=== PATIENT | male | born 1975 | race Caucasian/White ===

== ENCOUNTER 2020-10-19 13:49 | Emergency (ER) | payer OTHER ==
[~2020-10-19] VITALS: Ht 182.9 cm; Wt 79.4 kg
[2020-10-19] MEDS ORDERED: HYDROCODON-ACE1 EA10 PO (15:21)
[2020-10-19] MEDS ORDERED: FLOMAX0.4 MG PO (15:21)
[2020-10-19] MEDS ORDERED: ONDANSETRON ODT4 MG PO (15:21)
== END 2020-10-19 15:59 | disposition home or self-care (01) ==
LOC: ED 13:49
DX: N20.2 Calculus of kidney with calculus of ureter (principal)
CPT/HCPCS: 74176; 81001; 96372; 99284-25; J1885

== ENCOUNTER 2023-10-16 22:14 | Inpatient (IN) | payer OTHER ==
[~2023-10-16] VITALS: Ht 182.9 cm; Wt 76.7 kg
--- NOTE | ~2023-10-16 | DS ---
[facility] [address], [place] [address] Draft ADMISSION DATE: 10/16/2023 DISCHARGE DATE: 10/18/2023 REASON FOR ADMISSION: This 48-year-old white man presented to the alcohol detox unit within the past 24 hours preceding admission and developed significant abdominal pain, nausea and vomiting. He was taken to the emergency room where he was thoroughly evaluated by Dr. Alvarado, emergency room physician. The patient was at the detox center on the basis of alcohol use disorder, though later admitted to have methamphetamine use including quite recently prior to his presentation at the detox center. His evaluation in the emergency room showed him to have significant abdominal pain and tenderness and a CT scan was showing a massively dilated stomach as well as dilated small bowel loops highly suggestive of small bowel obstruction. Notably, a tox screen was obtained showing him positive for amphetamines including MDMA. Blood alcohol level was negative. He is admitted for further evaluation and care regarding small-bowel obstruction. PAST MEDICAL HISTORY: Quite notable for no evidence of abdominal surgery in the past. He has no associated hernia either. PERTINENT PHYSICAL EXAMINATION: GENERAL: Showed an alert and well-developed, white man with extensively tattooed, who appeared nontoxic without sign of substance withdrawal. VITAL SIGNS: Temperature is , pulse 71, blood pressure 133/73, O2 saturation 98% on room air. NECK: Trachea is midline. CHEST: Clear. HEART: Regular without murmur. ABDOMEN: Nondistended and flat. No focal tenderness. EXTREMITIES: Show no clubbing, cyanosis, or edema. Nasogastric tube showed thickened nasogastric enteric fluid in copious amounts. HOSPITAL COURSE: He was given intravenous fluids and nasogastric tube decompression. Some clear liquids were later allowed to not only clear the tube but also to provide comfort. A followup KUB was performed the 1st day, which showed marked distention of small bowel loops and good position of the nasogastric tube. PATIENT NAME: YVONNE HOWELL DISCHARGE SUMMARY DATE OF : 75 REPORT #: [id number] PHYSICIAN: LIZ GRIFFITH MD PCP: NO PRIMARY CARE PHYSICIAN REPORT IS CONFIDENTIAL AND NOT TO BE RELEASED WITHOUT AUTHORIZATION [facility] [address], [place] [address] Draft He had progressive improvement the following day, was noted on abdominal x-ray to have apparent clearance of the bowel obstruction. On that basis, a small-bowel follow-through was performed which confirmed no evidence of lesion of the small bowel to account for obstruction and passage of contrast into the colon. His nasogastric tube was removed and he was begun on regular diet which he has tolerated well. He did have bowel movement including liquid stool thereafter. He is free to eat that which he desires. He will return to his usual medications of Zofran 4 mg as needed for nausea and tamsulosin and Flomax 0.4 mg daily. He was on hydrocodone and Tylenol for history of kidney stones, which is no longer needed. DISCHARGE DIAGNOSES: 1. Acute small bowel obstruction with marked distention of stomach and small bowel loops. 2. Negative history for abdominal operation or hernia. 3. Substance abuse disorder including methamphetamine and alcohol. 4. History of nephrolithiasis. DISCHARGE MEDICATIONS: Will include nicotine patch 24 mg per day on a daily basis, dispense #30, refill x3. MD ALPESH Yates/ELEONORAL /[id number] cc: Dr. Alvarado Copies: ~ PATIENT NAME: YVONNE HOWELL DISCHARGE SUMMARY DATE OF : 75 REPORT #: [id number] PHYSICIAN: LIZ GRIFFITH MD PCP: NO PRIMARY CARE PHYSICIAN REPORT IS CONFIDENTIAL AND NOT TO BE RELEASED WITHOUT AUTHORIZATION
[~2023-10-16 22:14] MED LIST: FLOMAX0.4 MG PO; HYDROCODON-ACE1 EA10 PO; ONDANSETRON ODT4 MG PO
[2023-10-16] MEDS ORDERED: MULTIVITAMINS 10 ML,FOLIC ACID 1 MG,THIAMINE HCL 100 MG in SODIUM CHLORIDE 0.9% 1,000 ML IV ONE (22:30)
[2023-10-16] MEDS ORDERED: FAMOTIDINE 20 MG/ 2 ML VIAL IV ONE (22:30)
[2023-10-16] MEDS ORDERED: ondansetron HCL 4 MG/2 ML VIAL IV ONE (22:30)
[2023-10-16] MEDS ORDERED: FOLIC ACID 1 MG/0.2 ML ML ONE (22:31)
[2023-10-16 23:33] LABS: BASOPHILS 0.4 % (0-2); EOSINOPHILS 2.7 % (0-6); LYMPHOCYTES 13.2 % (24-44); MCH 29.8 (27-36); MCHC 33.3 g/dl (30-36); MCV 89.3 fl (81-99); MONOCYTES 6.2 % (0-12); NEUTROPHILS 77.5 % (39-80); PLATELET COUNT 435 K/uL (140-440); RBC 4.71 M/ul (4.3-5.7); RDW 14.6 (10.5-15.0)
[2023-10-16 23:49] LABS: ALBUMIN 4.2 g/dL (3.4-5.0); ALBUMIN/GLOBULIN RATIO 1.27 (1.1-2.4); ANION GAP 12.8 (7-21); BILIRUBIN, TOTAL 0.4 ng/dL (0.2-1.0); BUN/CREATININE RATIO 15.25 (6.0-28.6); CALCIUM 9.9 mg/dL (8.5-10.1); CREATININE, SERUM 1.18 mg/dL (0.70-1.30); POTASSIUM 3.8 mmol/L (3.5-5.1); PROTEIN, TOTAL 7.5 g/dL (6.4-8.2)
[2023-10-17] VITALS (9 sets, daily range): BP systolic 121–143; BP diastolic 69–85
[2023-10-17 00:06] LABS: BILIRUBIN, URINE NEGATIVE (negative); BLOOD/HGB, URINE NEGATIVE (Negative); KETONE, URINE NEGATIVE (Negative); LEUK ESTERASE, URINE NEGATIVE (negative); NITRITE, URINE NEGATIVE (negative); PH, URINE 6.5 (5-7)
[2023-10-17 00:20] LABS: AMPHETAMINES, URINE POSITIVE (NEGATIVE); BARBITURATES, URINE NEGATIVE (NEGATIVE); BENZODIAZEPINE, URINE NEGATIVE (NEGATIVE); BUPRENORPHINE, URINE NEGATIVE (NEGATIVE); CANNABINOID, URINE POSITIVE (NEGATIVE); COCAINE, URINE NEGATIVE (NEGATIVE); ECSTASY, URINE POSITIVE (NEGATIVE); FENTANYL, URINE NEGATIVE (NEGATIVE); METHADONE, URINE NEGATIVE (NEGATIVE); OPIATES, URINE NEGATIVE (NEGATIVE); OXYCODONE, URINE NEGATIVE (NEGATIVE); PHENCYCLIDINE, URINE NEGATIVE (NEGATIVE)
[2023-10-17] MEDS ORDERED: ondansetron HCL 4 MG/2 ML VIAL IV PRN ×2 (00:30→09:45)
[2023-10-17] MEDS ORDERED: LORazepam 2 MG/ML VIAL IV/IM PRN (00:30)
[2023-10-17] MEDS ORDERED: LACTATED RINGER'S 1,000 ML IV SCH ×2 (00:30→09:45)
--- NOTE | 2023-10-17 02:21 | NUR ---
PATIENT ARRIVED TO THE UNIT VIA STRETCHER. MOVED OVER TO BED INDEPENDENTLY. NG TUBE IN PLACE. CONNECTED TO LIWS ON ARRIVAL. CENTRAL LINE IN PLACE; DRESSING INTACT. BANANA BAG INFUSING PER ORDER. PATIENT VS STABLE. PATIENT AAOX4. CIWA <8. LUNGS SOUNDS CLEAR; TOLERATING ROOM AIR. ABD IS TENDER, SOFT. BOWEL SOUNDS HYPOACTIVE. PATIENT IS COVERED IN MANY TATTOOS. SKIN OVERALL INTACT. POST IV SITES AND IV ATTEMPTS NOTED ON CHA ARMS. WARM BLANKET PROVIDED. PATIENT REQUEST NICOTINE PATCH WHICH WAS PROVIDED PER NIO.
[2023-10-17] MEDS ORDERED: NICOTINE 21 MG/24 HR 1 EA TDSY TD SCH ×2 (02:45→09:00)
--- NOTE | 2023-10-17 03:07 | NUR ---
nicotine patch placed on left shoulder. iv fluids started. good blood return and flushed well in proximal central line. ng tube on lis. pt states no other needs at this time. call light in reach.
--- NOTE | 2023-10-17 05:40 | NUR ---
steph rn from detox is here to speak with pt. pt agrees to speak with him. steph tells staff that by the the time the pt leaves the hospital, he nicole be done with detox and ready to go to residential. steph also states that the detox center will be willing to take the pt back when he leaves the hospital.
--- NOTE | 2023-10-17 06:00 | NUR ---
PATIENT REPORTS A HEADACHE. CIWA = 8 PRN ATIVAN PROVIDED NG TUBE IN PLACE; CONNECTED TO LIWS. FLUSHED WITH 20 MLS WATER TO ENSURE PATENCY. SMALL AMOUNT OF OUTPUT NOTED. IV FLUIDS PER ORDER. CENTRAL LINE WNL.
--- NOTE | 2023-10-17 07:44 | NUR ---
Report received - pt resting in bed with HOB >30 degrees, eyes closed, NGT at LIS. Call light in reach.
--- NOTE | 2023-10-17 08:27 | NUR ---
Assesment complete - pt resting in bed, responds to verbal stimuli, drowsy and does not open eyes when talking. Rates pain 3/10 in abdomen, non specific location. NGT to lis, contents in canister brown with what appears as undigested food. Active bowel tones in all quadrants. Pt states he last used meth yesterday as well as last alcohol drink. Pt denies need to urinate at this time, states last urine was in ED last night. VS wnl. Call light in reach.
[2023-10-17] MEDS ORDERED: FAMOTIDINE 20 MG/ 2 ML VIAL IV SCH ×3 (09:00→21:00)
[2023-10-17] MEDS ORDERED: ARIPIPRAZOLE5 MG PO (09:25)
[2023-10-17] MEDS ORDERED: BUPROPION XL150 MG PO (09:26)
--- NOTE | 2023-10-17 09:34 | NUR ---
RN ROUNDING WITH MD - ALL QUESTIONS ANSWERED.
[2023-10-17] MEDS ORDERED: PROCHLORPERAZINE EDISYLATE 10 MG/2 ML VIAL IV PRN (09:45)
[2023-10-17] MEDS ORDERED: LORazepam 2 MG/ML VIAL IV PRN (09:45)
[2023-10-17] MEDS ORDERED: KETOROLAC TROMETHAMINE 30 MG/ML VIAL IV PRN (09:45)
--- NOTE | 2023-10-17 10:27 | NUR ---
MED REC COMPLETE
--- NOTE | 2023-10-17 11:44 | NUR ---
Assisted pt up to bathroom to void - steady on his feet, reports some dizziness first time out of bed. Ambulation encouraged, sbo education provided. NGT remains at lis - appears to be clearing secreations properly. All monitors removed as MS status.
--- NOTE | 2023-10-17 12:16 | HP ---
[facility] [address], [place] [address] Signed ADMISSION DATE: 10/17/2023 REASON FOR ADMISSION: Small bowel obstruction, concurrent substance abuse issues (alcohol, methamphetamine). HISTORY OF PRESENT ILLNESS: This 48-year-old white man, who has received to the alcohol detox unit within the past 24 hours of admission and began having significant abdominal pain, nausea, and vomiting. He was taken to the emergency room, where he was thoroughly evaluated by Dr. Burrell. He had been going to detox on the basis of alcohol use disorder, though later admitted that he has had methamphetamine including quite recently. At presentation to the emergency room, he said his last alcoholic drink was 8 hours previously. He was rating his pain as 10/10. Toradol was effective for his initial pain. Nasogastric tube was placed and a right internal jugular central venous catheter was placed as he has poor peripheral access related to prior IV drug abuse in the past. A tox screen was obtained, which showed him positive for amphetamines including MDMA. His alcohol level was negative. A CT scan was performed, which showed a high-grade bowel obstruction with a transition point to decompress bowel in the anterior lower abdomen. He had marked gastric distention, nasogastric tube was placed. A nonobstructing right kidney stone was noted as well. He was admitted directly to the Intensive Care Unit given the possibility of alcohol withdrawal syndrome, although he showed no evidence of alcohol withdrawal at his presentation. He is now feeling better with nasogastric tube, though still has some pain. He has had no bowel movement or flatus since admission. His lab studies at admission showed white count of 14.7, hematocrit of 42, and platelet count of 435,000. Chem profile was essentially normal. Glucose 110, creatinine 1.18. Lipase was normal at 55. Marijuana was noted in his intake as well on the tox screen. Urinalysis was essentially normal. PAST MEDICAL HISTORY: Notable for no prior abdominal operations. He has no known hernia, nor was any identified on physical exam or CT scan. The patient admits to daily marijuana use, episodic methamphetamine use, and of course alcohol abuse. SOCIAL HISTORY: He lives in [place]. He is . His , Martha Zhao. He is part of the [employer]. REVIEW OF SYSTEMS: Electronically Signed By: LIZ GRIFFITH MD 10/17/23 1216 PATIENT NAME: YVONNE HOWELL HISTORY AND PHYSICAL DATE OF : 75 REPORT #: [id number] PHYSICIAN: LIZ GRIFFITH MD PCP: NO PRIMARY CARE PHYSICIAN REPORT IS CONFIDENTIAL AND NOT TO BE RELEASED WITHOUT AUTHORIZATION [facility] [address] [place] [id number] Signed He denies any shortness of breath or chest pain. He has no groin pain or back pain. PHYSICAL EXAMINATION: GENERAL: An extensively tattooed white man, who appears nontoxic and without signs of acute substance withdrawal. VITAL SIGNS: Temperature is 98.3, pulse is 71, blood pressure 132/73, and O2 saturation 98% on room air. NECK: Trachea is midline. CHEST: Shows normal respiratory excursion. ABDOMEN: Nondistended and flat. There is no tenderness. EXTREMITIES: Showed no clubbing, cyanosis, or edema. ASSESSMENT AND PLAN: I reviewed the CT scan, which showed massively distended stomach and dilated small bowel loops. He does have clinical findings of obstruction. It is notable that he has not had abdominal surgery that would account for adhesions to cause obstruction, therefore close examination for possible hernia or other cause of obstruction is undertaken showing no such finding. He showed no evidence of alcohol or other symptoms withdrawal thus far, though we will be highly vigilant to that possibility. He is essentially n.p.o. with a nasogastric tube in place. I am hopeful and optimistic that perhaps the bowel obstruction will resolve without need for operative intervention, but if so it certainly can and will be done. I will consult the hospitalist, Dr. Ky Rock to assist with recommendations regarding alcohol and methamphetamine and other substance abuse, withdrawal issues. We will allow clear liquids for comfort as they will be withdrawn to the nasogastric tube. The substance of the nasogastric tube is rather thick and has required multiple irrigations, which is fine and the diluting effective of oral liquids will be beneficial in that regard as well. MD ALPESH Yates/MODL /[id number] cc: Dr. Burrell Electronically Signed By: LIZ GRIFFITH MD 10/17/23 1216 PATIENT NAME: YVONNE HOWELL HISTORY AND PHYSICAL DATE OF : 75 REPORT #: [id number] PHYSICIAN: LIZ GRIFFITH MD PCP: NO PRIMARY CARE PHYSICIAN REPORT IS CONFIDENTIAL AND NOT TO BE RELEASED WITHOUT AUTHORIZATION [address] Alec Levy Copies: ~ Electronically Signed By: LIZ GRIFFITH MD 10/17/23 1216 PATIENT NAME: YVONNE HOWELL HISTORY AND PHYSICAL DATE OF : 75 REPORT #: [id number] PHYSICIAN: LIZ GRIFFITH MD PCP: NO PRIMARY CARE PHYSICIAN REPORT IS CONFIDENTIAL AND NOT TO BE RELEASED WITHOUT AUTHORIZATION
--- NOTE | 2023-10-17 14:09 | NUR ---
PT RESTING IN BED WATCHING TV - REPORTS IMPROVED ABD PAIN. NGT TO LIS WITH BILE IN TUBING, DENIES NAUSEA. UP OUT OF BED TO AMBULATE HALLWAYS. ASSESSMENT UNCHANGED.
--- NOTE | 2023-10-17 14:39 | NUR ---
PT UP IN CHAIR WITH VISITORS IN ROOM - ALL QUESTIONS ANSWERED FOR FAMILY AND PT REGARDING DISEASE PROCESS AND RESULTS THUS FAR.
[2023-10-17] MEDS ORDERED: NICOTINE POLACRILEX 4 MG LOZENGE BUCCAL PRN (15:00)
--- NOTE | 2023-10-17 18:34 | NUR ---
DR. GRIFFITH NOTIFIED OF PT NEW ONSET CHEST PAIN - EKG AND TROPONINS ORDERED. PT RESTING IN BED WATCHING TV BUT WITH HAND ON CHEST, DESCRIBES PAIN "SOMEWHAT INTENSE" AND RADIATING UNDER LEFT ARMPIT. VS WNL. NGT CONTENTS UNCHANGED. OTHERWISE ASSESSMENT UNCHANGED. PT DENIES ANXIETY, STATES HE DOES NOT FEEL LIKE HE IS EXPERIENCING WITHDRAWL, DENIES EVER EXPERIENCING PAIN LIKE THIS.
--- NOTE | 2023-10-17 19:17 | NUR ---
DR. GRIFFITH UPDATED ON PT LABS AND EKG - NO NEW ORDERS RECEIVED. PT UPDATED ON RESULTS. REPORT GIVEN TO ELMA RODNEY.
--- NOTE | 2023-10-17 19:36 | NUR ---
REPORT RECEIVED AND CARE ASSUMED FROM RASHAUN DUTTON.
--- NOTE | 2023-10-17 21:33 | NUR ---
SHIFT ASSESSMENT COMPLETE. SEE [employer] FOR DETAILS. PT RESTING IN BED WATCHING TELEVISION. PT CONTINUES TO REQUEST FOOD. PT RE-EDUCATED TO WHY HE IS NPO STATUS. CALL LIGHT IN REACH. PT DENIES ADDITIONAL NEEDS AT THIS POINT. BED IN LOW, LOCKED POSITION. MAINTENANCE FLUIDS INFUSING. NGT TO LIS. VSS AND NAD VIA PT STATEMENT AND DIRECT OBS.
--- NOTE | 2023-10-18 00:15 | NUR ---
PT RESTING IN BED WITH EYES CLOSED. PT EASILY AWAKENED TO VOICE. PT DENIES NEEDS AT THIS TIME. PT VERBALIZES UNDERSTANDING TO USE CALL LIGHT WITH NEEDS. NG PATENT, FLUSHED AND SET TO LIS. BED IN LOW, LOCKED POSITION WITH CALL LIGHT AND PERSONAL ITEMS IN REACH. NAD NOTED VIA DIRECT OBS.
--- NOTE | 2023-10-18 00:53 | NUR ---
PT CALLED FOR ICE CHIPS. REQUEST PROVIDED. PT DENIES ADDITIONAL NEEDS AT THIS TIME. NAD NOTED VIA PT STATEMENT AND DIRECT OBS.
--- NOTE | 2023-10-18 02:30 | NUR ---
PT REQUESTING ICE CHIPS, DENIES ADDITIONAL NEEDS. PT RESTING IN BED WATCHING TELEVISION. CALL LIGHT IN REACH, NGT PATENT TO LIS. IJ PATENT WITH MAINTENANCE FLUIDS INFUSING.
--- NOTE | 2023-10-18 05:00 | NUR ---
PT REQUESTED AND PROVIDED ICE CHIPS. PT DENIES ADDITIONAL NEEDS. CALL LIGHT IN REACH. BED IN LOW, LOCKED POSITION. PERSONAL ITEMS IN REACH. PT FIANCE CALLED AND TRANSFERRED TO PT ROOM PER PT INSTRUCTION. VSS AND NAD NOTED.
[2023-10-18 06:00] VITALS: BP 133/94
[2023-10-18 06:40] LABS: BASOPHILS 1.1 % (0-2); EOSINOPHILS 5.5 % (0-6); HEMATOCRIT 37.1 % (35.0-50.0); HEMOGLOBIN 12.7 g/dL (12.0-18.0); LYMPHOCYTES 29.7 % (24-44); MCH 30.4 (27-36); MCHC 34.1 g/dl (30-36); MCV 89.3 fl (81-99); MONOCYTES 7.7 % (0-12); PLATELET COUNT 377 K/uL (140-440); RBC 4.16 M/ul (4.3-5.7); RDW 14.4 (10.5-15.0)
[2023-10-18 06:50] LABS: ALBUMIN 2.9 g/dL (3.4-5.0); ALBUMIN/GLOBULIN RATIO 1.07 (1.1-2.4); ANION GAP 7.7 (7-21); BILIRUBIN, TOTAL 0.7 ng/dL (0.2-1.0); BUN/CREATININE RATIO 10.34 (6.0-28.6); CALCIUM 8.4 mg/dL (8.5-10.1); CREATININE, SERUM 0.87 mg/dL (0.70-1.30); POTASSIUM 3.7 mmol/L (3.5-5.1); PROTEIN, TOTAL 5.6 g/dL (6.4-8.2)
--- NOTE | 2023-10-18 07:06 | NUR ---
REPORT GIVEN AND CARE ENDORSED TO DAYSHIFT RN'S. ALL QUESTIONS ASKED. NAD NOTED VIA DIRECT OBS.
--- NOTE | 2023-10-18 07:30 | NUR ---
REPORT RECEIVED. PATIENT RESTING. C/O LEON AND NAUSEA.
--- NOTE | 2023-10-18 08:00 | NUR ---
ASSESSMENT DONE. TORDOL 30 MG IV GIVEN FOR LEON. ZOFRAN 8 MG IV GIVEN FOR NAUSEA. TALKED WITH PATIENT ABOUT POC FOR THE DAY, INDICATES UNDERSTANDING. ORAL CARE GIVEN. HENRY CLAUDIO DONE EARLIER. IVF PATENT
[2023-10-18 09:00] VITALS: BP 128/82
--- NOTE | 2023-10-18 09:30 | NUR ---
XRAY HERE FOR SMALL BOWEL FOLLOW THROUGH STUDY.
--- NOTE | 2023-10-18 11:00 | NUR ---
SMALL BOWEL FOLLOW THROUGH COMPLETE. THIS PER XRAY DEPARTMENT. PATIENT I SW/O C/O. IVF REMAIN PATENT.
--- NOTE | 2023-10-18 11:09 | NUR ---
XRAY HERE TO FOLLOW UP ON SMALL BOWEL FOLLOW THROUGH.
--- NOTE | 2023-10-18 11:57 | EKG ---
[facility] [address] [facility] [place], [place] [address] Signed Normal sinus rhythm Incomplete right bundle branch block Borderline ECG No previous ECGs available Confirmed by Julianna Monique MD ([id number]) on 10/18/2023 11:57:25 AM Electronically Signed By: JULIANNA MONIQUE 10/18/23 1157 PATIENT NAME: YVONNE HOWELL Electrocardiogram DATE OF : 75 PHYSICIAN: JULIANNA MONIQUE REPORT #: [id number] REPORT IS CONFIDENTIAL AND NOT TO BE RELEASED WITHOUT AUTHORIZATION
[2023-10-18 12:00] VITALS: BP 130/77
--- NOTE | 2023-10-18 12:30 | NUR ---
DR. GRIFFITH AWARE OF THE RESULTS OF SMALL BOWEL FOLLOW THROUGH. ORDERS RECEIVED TO DC NGT AND START REGULAR DIET.
--- NOTE | 2023-10-18 13:00 | NUR ---
SAT UP IN CHAIR TO TAKE REGULAR LUNCH.
--- NOTE | 2023-10-18 13:30 | NUR ---
TOOK LUNCH WELL. DENIES NAUSEA. HAD SMALL LIQUID STOOL. IVF NOW ON STANDBY.
--- NOTE | 2023-10-18 13:47 | NUR ---
SPOKE WITH CARRIE AT [facility]. PATIENT WILL NEED A CARE RIDE WHEN DC'D FROM FACILITY TO [facility]. Ida ALEMAN RN, NOTIFIED.
--- NOTE | 2023-10-18 13:56 | NUR ---
UR NOTE 10/17/23 ADMISSION INPATIENT FOR SMALL BOWEL OBSTRUCTION MEETS CLINICAL MCG INDICATIONS
[2023-10-18] MEDS ORDERED: NICOTINE1 EAC2 TD (15:59)
--- NOTE | 2023-10-18 16:00 | NUR ---
DISCHARGE ORDERS RECEIVED.
--- NOTE | 2023-10-18 16:10 | NUR ---
RIJ TRIPLE LUMEN CATH DC'D. NO BLEEDING NOTED. INSTRUCTIONS ON CARE OF SITE GIVEN.
--- NOTE | 2023-10-18 16:18 | NUR ---
CHART FAXED TO [facility]. CALLED AND NOTIFIED CARRIE, PATIENT WILL BE DISCHARGING AND ARRIVING VIA TAXI FROM FACILITY. CARE RIDE SET UP, THEY WILL ARRIVE TO GET PATIENT IN APPROXIMATELY 20 MINUTES.
--- NOTE | 2023-10-18 16:25 | NUR ---
DISCHARGE INSTRUCTIONS GIVEN WITH PATIENT UNDERSTANDING.
== END 2023-10-18 16:45 | disposition home or self-care (01) | DRG 390 ==
LOC: ED 22:14 → CCU 10-17 00:51
PROVIDERS: Internal Medicine; ADMIT Surgery; ATTEND Surgery
PROC: 02HV33Z Insertion of Infusion Device into Superior Vena Cava, Percutaneous Approach (ICD-10-PCS; principal; 2023-10-17)
DX: K56.609 Unspecified intestinal obstruction, unspecified as to partial versus complete obstruction (principal); F15.10 Other stimulant abuse, uncomplicated; F10.10 Alcohol abuse, uncomplicated; Z87.442 Personal history of urinary calculi
CPT/HCPCS: 36415; 71045; 74018; 74176; 74250; 80048; 80053; 80307; 81003; 83690; 83735; 84484; 85025; 93005; 93010; 99406; G0480; J1885; J2060; J2405; J3411; J7030; J7121